=== PATIENT | female | born 1985 | race Caucasian/White ===

== ENCOUNTER → 2016-12-10 14:17 | Outpatient (CLI) | payer OTHER ==
[2013-03-05 08:27] VITALS: BMI 27.4
[~2016-12-10 14:17] MED LIST: AMBIEN10 MG; AMBIEN10 MG PO; COUMADIN1 MG
[2016-12-10 14:48] LABS: BASOPHILS 0.3 % (0-2); EOSINOPHILS 2.2 % (0-7); HEMATOCRIT 40.3 % (36.0-48.0); HEMOGLOBIN 13.2 g/dL (12-16); IMMATURE GRANULOCYTES 0.3 % (0-5); LYMPHOCYTES 26.9 % (15-50); MCH 27.8 pg (26.0-34.0); MCHC 32.8 g/dL (31.0-37.0); MCV 84.8 fL (80.0-100.0); MEAN PLATELET VOLUME 9.4 fL (7.4-10.4); MONOCYTES 6.1 % (2-11); NEUTROPHILS 64.2 % (40-80); PLATELET COUNT 244 10x3/uL (130-400); RBC 4.75 10x6/uL (4.00-5.40); RDW 13.7 % (11.5-14.5); WBC 5.9 10x3/uL (4.8-10.8)
[2016-12-10 14:58] LABS: APTT 33.2 SECONDS (22.8-39.4); INR 0.89 (0.85-1.17); PROTIME 11.9 SECONDS (11.6-15.0)
[2016-12-10 15:10] LABS: ANION GAP 13.1 mmol/L (8-16); CALCIUM 9.1 mg/dL (8.5-10.1); CARBON DIOXIDE 28.8 mmol/L (21.0-32.0); POTASSIUM - SERUM 3.9 mmol/L (3.5-5.1)
== END | disposition home or self-care (01) ==
LOC: D.LAB 14:17
PROVIDERS: Neurological Surgery
DX: G90.521 Complex regional pain syndrome I of right lower limb (principal); G89.4 Chronic pain syndrome

== ENCOUNTER 2018-09-01 06:05 | Day surgery (SDC) | payer OTHER ==
[~2018-09-01] VITALS: Ht 154.9 cm; Wt 91.8 kg
[2018-09-01 06:46] LABS: HEMATOCRIT 40.6 % (36.0-48.0); HEMOGLOBIN 13.4 g/dL (12-16); MCH 27.2 pg (26.0-34.0); MCV 82.4 fL (80.0-100.0); MEAN PLATELET VOLUME 9.3 fL (7.4-10.4); RBC 4.93 10x6/uL (4.00-5.40); RDW 14.3 % (11.5-14.5); WBC 5.4 10x3/uL (4.8-10.8)
[2018-09-01 06:49] LABS: APTT 34.3 SECONDS (22.8-39.4); PROTIME 12.7 SECONDS (11.6-15.0)
[2018-09-01] MEDS ORDERED: TEMAZEPAM30 MG PO (08:29)
[2018-09-01] MEDS ORDERED: LOVENOX120 MG/0.8 SC (08:30)
[2018-09-01] MEDS ORDERED: RESTORIL15 MG (08:30)
[2018-09-01] MEDS ORDERED: PROTONIX40 MG PO (08:31)
[2018-09-01] MEDS ORDERED: XARELTO20 MG PO (08:32)
[2018-09-01] MEDS ORDERED: BACLOFEN20 M1 PO (08:32)
[2018-09-01 08:37] VITALS: BP 113/84; Ht 154.9 cm; Wt 91.8 kg
--- NOTE | 2018-09-01 09:52 | NUR ---
0930-RECD FROM GI LAB. DR MONTANO IN TO REPORT FINDINGS 0945-UP TO BATHROOM, VOIDS, PASSES FLATUS, FULL LIQUIDS SERVED.
--- NOTE | 2018-09-01 10:18 | NUR ---
1010-D/C HOME VIA WHEELCHAIR WITH FAMILY.
--- NOTE | 2018-09-02 15:43 | OP ---
PATIENT NAME: ROC GUAJARDO MEDICAL RECORD: [id number] :81 LOCATION:[facility] ADMISSION DATE: SURGEON: JARED MONTANO DO DATE OF OPERATION: 09/01/2018 PROCEDURE: Colonoscopy with biopsies. INDICATIONS FOR PROCEDURE: Change in bowel habits. SCOPE: Olympus video pediatric colonoscope. MEDICATIONS: Propofol 240 mg IV per anesthesia. WITHDRAWAL TIME: 7 minutes. ESTIMATED BLOOD LOSS: Minimal. COMPLICATIONS: None. FINDINGS AND DESCRIPTION OF PROCEDURE: Informed consent was given. The patient was made comfortable with the above medication. After reaching an adequate level of sedation by slow IV push, the patient was placed on her left side. A digital rectal examination was performed and was normal. The endoscope was then advanced under direct visualization through the rectum to the cecum and into the terminal ileum. The endoscope was slowly withdrawn and mucosa was carefully examined. The prep quality was excellent. There were no abnormalities visualized on today's examination in the colon or the terminal ileum. Random cold forceps biopsies were taken in the colon to submit for histopathology and to rule out the presence of microscopic colitis. Retroflexion was performed in the rectum with a normal appearing rectal wall. The endoscope was withdrawn from the patient. The patient tolerated the procedure well and there were no complications. IMPRESSION: Normal colonoscopy to terminal ileum. PLAN AND RECOMMENDATIONS: 1. Discharge home when recovery parameters are met. 2. Follow up biopsy specimen results. 3. High fiber diet. 4. Continue current medications. 5. Dicyclomine 20 mg p.o. t.i.d. p.r.n. loose stools or abdominal pain and cramping. 6. Recall colonoscopy at age 48 for colon cancer screening purposes. TRANSINT:[id number] Voice Confirmation ID: [id number] DOCUMENT ID: [id number] JARED MONTANO DO at 1543 CC: [id number] DICTATION DATE: 09/01/18922 CARDIOLOGY RN: 09/01/18 1125 [facility] 09/01/[address] [address]
== END 2018-09-01 10:10 | disposition home or self-care (01) ==
LOC: D.OPS 06:05
PROVIDERS: Anesthesiology; ATTEND Internal Medicine Gastroenterology
DX: R19.4 Change in bowel habit (principal); R10.9 Unspecified abdominal pain; Z01.812 Encounter for preprocedural laboratory examination

== ENCOUNTER 2018-09-08 05:46 | Day surgery (SDC) | payer OTHER ==
[~2018-09-08] VITALS: Ht 154.9 cm; Wt 86.4 kg
[~2018-09-08 05:46] MED LIST changes: +BACLOFEN20 M1 PO; +LOVENOX120 MG/0.8 SC; +PROTONIX40 MG PO; +RESTORIL15 MG; +TEMAZEPAM30 MG PO; +XARELTO20 MG PO
[2018-09-08 06:19] LABS: APTT 30.7 SECONDS (22.8-39.4); INR 0.96 (0.85-1.17); PROTIME 12.2 SECONDS (11.6-15.0)
[2018-09-08 06:25] LABS: HEMATOCRIT 37.4 % (36.0-48.0); HEMOGLOBIN 12.4 g/dL (12-16); MCHC 33.2 g/dL (31.0-37.0); MCV 81.5 fL (80.0-100.0); MEAN PLATELET VOLUME 9.3 fL (7.4-10.4); RBC 4.59 10x6/uL (4.00-5.40); RDW 14.2 % (11.5-14.5); WBC 5.5 10x3/uL (4.8-10.8)
[2018-09-08 07:10] VITALS: BP 124/78; Ht 154.9 cm; Wt 86.4 kg
--- NOTE | 2018-09-08 09:08 | NUR ---
0840 IV DC'D. CATHETER INTACT. NO BLEEDING AT SITE. BANDAID APPLIED.
--- NOTE | 2018-09-09 18:01 | OP ---
PATIENT NAME: ROC GUAJARDO MEDICAL RECORD: [id number] :81 LOCATION:[facility] ADMISSION DATE: SURGEON: JARED MONTANO DO DATE OF OPERATION: 09/08/2018 PROCEDURE: EGD with biopsies. INDICATION FOR PROCEDURE: Heartburn, epigastric abdominal pain, change in bowel habits. SCOPE: Olympus video gastroscope. MEDICATIONS: Propofol 150 mg IV per anesthesia. ESTIMATED BLOOD LOSS: Minimal. COMPLICATIONS: None. FINDINGS: Informed consent was given. The patient was made comfortable with the above medication. After reaching an adequate level of sedation by slow IV push, the patient was placed on the left side. The endoscope was advanced under direct visualization through the mouth to the second portion of the duodenum. In the upper esophagus, there were 2 patches of heterotopic gastric mucosa with no abnormal mucosal findings. The remainder of the upper, middle, and lower thirds of the esophagus appeared normal. Random cold forceps biopsies were taken from the mid esophagus to rule out the presence of eosinophils. At the GE junction, there was evidence of LA class A reflux-induced esophagitis. The endoscope was advanced beyond the GE junction into the stomach where a significant amount of food retention was visualized. Retroflexion was performed to look at the cardia, which appeared relatively normal. A significant portion of the gastric mucosa as well as the small bowel mucosa was not visualized due to the amount of food that was retained. From what could be visualized mucosa appeared normal. Cold forceps biopsies were taken from the antrum to submit for histopathology and to rule out the presence of H. pylori. The endoscope was advanced into the duodenum and cold forceps biopsies were randomly taken to submit for histopathology. The endoscope was withdrawn from the patient. The patient tolerated the procedure well and there were no complications. IMPRESSION: 1. 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 2. LA class A reflux-induced esophagitis. 3. Significant amount of food retention. PLAN AND RECOMMENDATIONS: 1. Discharge home when recovery parameters are met. 2. Follow up biopsy specimen results. 3. Gastroparesis diet consisting a small and more frequent meals that are low in fat and fiber content. 4. Gastric emptying scan. 5. We will consider a week-long trial of Reglan. Pending results of the gastric emptying scan. 6. Consider a pH study with LPRD probe to evaluate the amount and the extent of reflux while on medications. 7. Followup in GI clinic in 3-4 weeks. OPERATIVE REPORT [id number] ROC GUAJARDO TRANSINT:[id number] Voice Confirmation ID: [id number] DOCUMENT ID: [id number] JARED MONTANO DO at 1801 CC: [id number] DICTATION DATE: 09/08/18 0755 OIL EXPERT: 09/08/18 0855 [facility] 09/08/18 [id number] [place] [address]
== END 2018-09-08 08:54 | disposition home or self-care (01) ==
LOC: D.OPS 05:46
PROVIDERS: Anesthesiology; ATTEND Internal Medicine Gastroenterology
DX: R10.13 Epigastric pain (principal); R19.4 Change in bowel habit; K21.0 Gastro-esophageal reflux disease with esophagitis

== ENCOUNTER → 2018-09-09 12:39 | Outpatient (CLI) | payer OTHER ==
[2018-09-08 07:10] VITALS: BMI 35.9
== END | disposition home or self-care (01) ==
LOC: D.NM 12:39
PROVIDERS: ATTEND Internal Medicine Gastroenterology
DX: R10.13 Epigastric pain (principal); K31.84 Gastroparesis

== ENCOUNTER 2019-08-08 08:51 | Emergency (ER) | payer OTHER ==
[~2019-08-08] VITALS: Ht 154.9 cm; Wt 90.9 kg
[2019-08-08 09:00] VITALS: Ht 154.9 cm; Wt 90.9 kg
[2019-08-08 09:44] LABS: BASOPHILS 0.4 % (0-2); EOSINOPHILS 3.4 % (0-7); HEMATOCRIT 41.5 % (36.0-48.0); IMMATURE GRANULOCYTES 0.2 % (0-5); LYMPHOCYTES 22.2 % (15-50); MCH 25.8 pg (26.0-34.0); MCHC 31.3 g/dL (31.0-37.0); MCV 82.3 fL (80.0-100.0); MEAN PLATELET VOLUME 8.9 fL (7.4-10.4); MONOCYTES 5.5 % (2-11); NEUTROPHILS 68.3 % (40-80); PLATELET COUNT 248 10x3/uL (130-400); RBC 5.04 10x6/uL (4.00-5.40); RDW 14.8 % (11.5-14.5); WBC 5.3 10x3/uL (4.8-10.8)
[2019-08-08 09:53] LABS: ANION GAP 10.6 mmol/L (8-16); CALCIUM 9.1 mg/dL (8.5-10.1); CARBON DIOXIDE 29.1 mmol/L (21.0-32.0); CREATININE - SERUM 1.2 mg/dL (0.6-1.3); POTASSIUM - SERUM 3.7 mmol/L (3.5-5.1)
[2019-08-08 09:59] LABS: ALBUMIN 4.2 g/dL (3.4-5.0); BILIRUBIN - TOTAL 0.3 mg/dL (0.2-1.3); PROTEIN - SERUM 8.4 g/dL (6.4-8.2)
[2019-08-08 10:22] LABS: BILIRUBIN NEGATIVE (NEGATIVE); GLUCOSE NEGATIVE (NEGATIVE); KETONE NEGATIVE (NEGATIVE); NITRITE NEGATIVE (NEGATIVE); SPECIFIC GRAVITY 1.025 (1.005-1.020); UROBILINOGEN NORMAL (NORMAL)
[2019-08-08 10:23] LABS: BACTERIA FEW /hpf (NEGATIVE); EPITHELIAL CELLS 0-5 /hpf (0-5); RED CELLS - URINE OCC /hpf (0-5); WHITE CELLS - URINE 0-5 /hpf (NEGATIVE)
[2019-08-08] MEDS ORDERED: ULTRAM50 MG PO (11:05)
[2019-08-08 11:10] VITALS: BP 138/86
== END 2019-08-08 11:11 | disposition home or self-care (01) ==
LOC: D.ER 08:51
PROVIDERS: Family Medicine
DX: M54.6 Pain in thoracic spine (principal); R59.1 Generalized enlarged lymph nodes; I48.91 Unspecified atrial fibrillation; K21.9 Gastro-esophageal reflux disease without esophagitis; R07.81 Pleurodynia; R10.9 Unspecified abdominal pain

== ENCOUNTER 2019-09-15 01:18 | Emergency (ER) | payer OTHER ==
[~2019-09-15] VITALS: Ht 154.9 cm; Wt 92.1 kg
[~2019-09-15 01:18] MED LIST changes: +ULTRAM50 MG PO
[2019-09-15 01:27] VITALS: Ht 154.9 cm; Wt 92.1 kg
[2019-09-15 02:08] LABS: BILIRUBIN NEGATIVE (NEGATIVE); GLUCOSE NEGATIVE (NEGATIVE); KETONE NEGATIVE (NEGATIVE); NITRITE NEGATIVE (NEGATIVE); UROBILINOGEN NORMAL (NORMAL)
[2019-09-15 02:13] LABS: BASOPHILS 0.2 % (0-2); HEMATOCRIT 38.1 % (36.0-48.0); IMMATURE GRANULOCYTES 0.4 % (0-5); LYMPHOCYTES 25.9 % (15-50); MCHC 31.5 g/dL (31.0-37.0); MCV 82.6 fL (80.0-100.0); MEAN PLATELET VOLUME 8.7 fL (7.4-10.4); MONOCYTES 5.7 % (2-11); NEUTROPHILS 65.8 % (40-80); PLATELET COUNT 269 10x3/uL (130-400); RBC 4.61 10x6/uL (4.00-5.40); WBC 8.1 10x3/uL (4.8-10.8)
[2019-09-15 02:18] LABS: BACTERIA FEW /hpf (NEGATIVE); EPITHELIAL CELLS 0-5 /hpf (0-5); RED CELLS - URINE 0-5 /hpf (0-5); WHITE CELLS - URINE 0-5 /hpf (NEGATIVE)
[2019-09-15 02:21] LABS: ANION GAP 11.1 mmol/L (8-16); CALCIUM 8.6 mg/dL (8.5-10.1); CARBON DIOXIDE 30.5 mmol/L (21.0-32.0); CREATININE - SERUM 1.3 mg/dL (0.6-1.3); POTASSIUM - SERUM 3.6 mmol/L (3.5-5.1)
[2019-09-15 02:37] LABS: ALBUMIN 3.7 g/dL (3.4-5.0); BILIRUBIN - TOTAL 0.19 mg/dL (0.2-1.3); C-REACTIVE PROTEIN 1.2 mg/dL (0.0-0.9); PROTEIN - SERUM 7.4 g/dL (6.4-8.2); THYROID STIMULATING HORMONE 2.47 uIU/mL (0.36-3.74)
[2019-09-15 03:05] VITALS: BP 93/61
== END 2019-09-15 03:05 | disposition home or self-care (01) ==
LOC: D.ER 01:18
PROVIDERS: Family Medicine
DX: R10.9 Unspecified abdominal pain (principal); R07.89 Other chest pain; R11.2 Nausea with vomiting, unspecified

== ENCOUNTER 2019-11-16 16:21 | Emergency (ER) | payer OTHER ==
[~2019-11-16] VITALS: Ht 154.9 cm; Wt 88.6 kg
[2019-11-16 16:38] VITALS: Ht 154.9 cm; Wt 88.6 kg
[2019-11-16 17:34] LABS: BILIRUBIN NEGATIVE (NEGATIVE); GLUCOSE NEGATIVE (NEGATIVE); KETONE NEGATIVE (NEGATIVE); NITRITE NEGATIVE (NEGATIVE); UROBILINOGEN NORMAL (NORMAL)
[2019-11-16 18:02] LABS: BASOPHILS 0.1 % (0-2); EOSINOPHILS 8.3 % (0-7); HEMATOCRIT 42.1 % (36.0-48.0); HEMOGLOBIN 13.5 g/dL (12-16); IMMATURE GRANULOCYTES 0.6 % (0-5); LYMPHOCYTES 14.6 % (15-50); MCH 26.7 pg (26.0-34.0); MCHC 32.1 g/dL (31.0-37.0); MCV 83.4 fL (80.0-100.0); MEAN PLATELET VOLUME 8.9 fL (7.4-10.4); MONOCYTES 4.5 % (2-11); NEUTROPHILS 71.9 % (40-80); PLATELET COUNT 234 10x3/uL (130-400); RBC 5.05 10x6/uL (4.00-5.40); RDW 16.1 % (11.5-14.5); WBC 8.5 10x3/uL (4.8-10.8)
[2019-11-16 18:17] LABS: CALC OSMOLALITY 275 mosm/kg (275-300); CARBON DIOXIDE 27.9 mmol/L (21.0-32.0); CHLORIDE - SERUM 102 mmol/L (98-107); POTASSIUM - SERUM 3.9 mmol/L (3.5-5.1); SODIUM 137 mmol/L (136-145); UREA NITROGEN 19 mg/dL (7-18); eGFR NON AFRICAN AMERICAN 66 mL/min (90-120)
[2019-11-16 18:21] LABS: GLUCOSE 96 mg/dL (74-106); INR 1.15 (0.85-1.17); PROTIME 14.7 SECONDS (11.6-15.0)
[2019-11-16 18:22] LABS: APTT 39.2 SECONDS (22.8-39.4)
[2019-11-16 18:28] LABS: ALBUMIN 4.1 g/dL (3.4-5.0); ALKALINE PHOSPHATASE 157 U/L (30-120); ALT (SGPT) 37 U/L (10-68); AMYLASE - SERUM 33 U/L (25-115); BILIRUBIN - TOTAL 0.19 mg/dL (0.2-1.3); LIPASE 85 U/L (73-393); PROTEIN - SERUM 8.5 g/dL (6.4-8.2)
[2019-11-16 18:32] LABS: TROPONIN-I < 0.017 ng/mL (0.000-0.060)
[2019-11-16] MEDS ORDERED: LEVSIN/ANASP0.125 MG PO (19:38)
[2019-11-16] MEDS ORDERED: ZOFRAN ODT4 MG/UDTAB PO (19:38)
[2019-11-16] MEDS ORDERED: PEPCID AC20 MG PO (19:38)
[2019-11-16 19:57] VITALS: BP 132/79
== END 2019-11-16 19:57 | disposition home or self-care (01) ==
LOC: D.ER 16:21
PROVIDERS: Family Medicine
DX: R10.13 Epigastric pain (principal); N18.9 Chronic kidney disease, unspecified; R74.8 Abnormal levels of other serum enzymes; I48.91 Unspecified atrial fibrillation

== ENCOUNTER 2020-05-26 12:12 | Emergency (ER) | payer OTHER ==
[~2020-05-26] VITALS: Ht 154.9 cm; Wt 93.0 kg
[~2020-05-26 12:12] MED LIST changes: +LEVSIN/ANASP0.125 MG PO; +PEPCID AC20 MG PO; +ZOFRAN ODT4 MG/UDTAB PO
[2020-05-26 12:31] VITALS: BP 145/90; Ht 154.9 cm; Wt 93.0 kg
[2020-05-26] MEDS ORDERED: ELIQUIS5 MG PO (12:36)
[2020-05-26] MEDS ORDERED: BAYER CHEWABLE81 MG PO (12:36)
[2020-05-26 13:02] LABS: BASOPHILS 0.3 % (0-2); HEMATOCRIT 40.2 % (36.0-48.0); HEMOGLOBIN 13.6 g/dL (12-16); IMMATURE GRANULOCYTES 0.4 % (0-5); LYMPHOCYTE ABS# 1.75 10x3/uL (1.18-3.74); LYMPHOCYTES 25.6 % (15-50); MCH 29.8 pg (26.0-34.0); MCHC 33.8 g/dL (31.0-37.0); MCV 88.2 fL (80.0-100.0); MEAN PLATELET VOLUME 8.7 fL (7.4-10.4); MONOCYTES 4.4 % (2-11); NEUTROPHILS 67.3 % (40-80); PLATELET COUNT 248 10x3/uL (130-400); RBC 4.56 10x6/uL (4.00-5.40); RDW 12.8 % (11.5-14.5); WBC 6.8 10x3/uL (4.8-10.8)
[2020-05-26 13:23] LABS: ANION GAP 11.5 mmol/L (8-16); CALCIUM 9.4 mg/dL (8.5-10.1); CARBON DIOXIDE 27.5 mmol/L (21.0-32.0)
[2020-05-26 13:29] LABS: ALBUMIN 4.1 g/dL (3.4-5.0); BILIRUBIN - TOTAL 0.24 mg/dL (0.2-1.3); MAGNESIUM - SERUM 2.3 mg/dL (1.8-2.4); PROTEIN - SERUM 7.9 g/dL (6.4-8.2)
[2020-05-26 13:37] LABS: APTT 31.5 SECONDS (22.8-39.4); INR 1.03 (0.85-1.17); PROTIME 12.5 SECONDS (11.6-15.0)
[2020-05-26 13:51] LABS: BILIRUBIN NEGATIVE (NEGATIVE); KETONE NEGATIVE (NEGATIVE); NITRITE NEGATIVE (NEGATIVE); UROBILINOGEN NORMAL mg/dL (< 2)
[2020-05-26 13:52] LABS: SQUAMOUS EPITHELIAL 0-5 HPF (0-4); WHITE CELLS - URINE 2 HPF (0-4)
[2020-05-26 13:53] LABS: BACTERIA FEW HPF (NONE SEEN)
== END 2020-05-26 15:02 | disposition home or self-care (01) ==
LOC: D.ER 12:12
PROVIDERS: Family Medicine
DX: R03.0 Elevated blood-pressure reading, without diagnosis of hypertension (principal); K21.9 Gastro-esophageal reflux disease without esophagitis

== ENCOUNTER 2020-08-17 14:29 | Emergency (ER) | payer OTHER ==
[~2020-08-17] VITALS: Ht 154.9 cm; Wt 88.6 kg
[~2020-08-17 14:29] MED LIST changes: +BAYER CHEWABLE81 MG PO; +ELIQUIS5 MG PO
[2020-08-17 14:32] VITALS: BP 133/85; Ht 154.9 cm; Wt 88.6 kg
[2020-08-17 15:21] LABS: BASOPHILS 0.9 % (0-2); EOSINOPHILS 1.8 % (0-7); HEMATOCRIT 39.9 % (36.0-48.0); HEMOGLOBIN 13.4 g/dL (12-16); LYMPHOCYTES 16.9 % (15-50); MCH 28.8 pg (26.0-34.0); MCHC 33.7 g/dL (31.0-37.0); MCV 85.6 fL (80.0-100.0); MONOCYTES 3.2 % (2-11); NEUTROPHILS 77.2 % (40-80); RBC 4.66 10x6/uL (4.00-5.40); RDW 13.5 % (11.5-14.5); WBC 9.3 10x3/uL (4.8-10.8)
[2020-08-17 15:22] LABS: PLATELET COUNT 407 10x3/uL (130-400)
[2020-08-17 15:24] LABS: BILIRUBIN NEGATIVE (NEGATIVE); HCG URINE NEGATIVE (NEGATIVE); KETONE NEGATIVE (NEGATIVE); NITRITE NEGATIVE (NEGATIVE); UROBILINOGEN NORMAL mg/dL (< 2)
[2020-08-17 15:30] LABS: ANION GAP 14.2 mmol/L (8-16); CALCIUM 9.1 mg/dL (8.5-10.1); CARBON DIOXIDE 28.3 mmol/L (21.0-32.0); CREATININE - SERUM 1.1 mg/dL (0.6-1.3); POTASSIUM - SERUM 3.5 mmol/L (3.5-5.1)
[2020-08-17 15:36] LABS: BILIRUBIN - TOTAL 0.18 mg/dL (0.2-1.3); PROTEIN - SERUM 7.9 g/dL (6.4-8.2)
== END 2020-08-17 16:22 | disposition home or self-care (01) ==
LOC: D.ER 14:29
PROVIDERS: Emergency Medicine
DX: R10.9 Unspecified abdominal pain (principal); I48.91 Unspecified atrial fibrillation; K21.9 Gastro-esophageal reflux disease without esophagitis